=== PATIENT | male | born 1950 | race Caucasian/White ===

== ENCOUNTER → 2019-05-11 19:42 | Outpatient (CLI) | payer MEDICARE, OTHER, SELFPAY ==
--- NOTE | 2019-05-11 | DI.MRI.S_ITS ---
PROCEDURE: MR CERVICAL SPINE WO CON INDICATIONS: CERVICAL RADICULOPATHY TECHNIQUE: Noncontrast sagittal T1 spin echo and T2 fast spin echo, sagittal STIR, foraminal oblique sagittal T2 fast spin echo, and axial gradient echo or T2 fast spin echo through the cervical spine. COMPARISON: [facility], MR, CERVICAL SPINE W/O CONTRAST, 01/09/2008, 15:43. [facility], MR, C-SPINE WITHOUT CONTRAST, 12/14/2011, 18:41. FINDINGS: Image quality: Excellent. Alignment and Curvature: There is a trace C4-C5 and C5-C6 retrolisthesis. Bone Marrow: Mild reactive endplate changes noted adjacent to the C4-C5, C5-C6 and C6-C7 discs. Spinal Cord: Visualized spinal cord has normal size and signal. No cerebellar tonsillar herniation. Paraspinous Soft Tissues: No paravertebral masses. Prevertebral soft tissues are normal in thickness. C2-C3: Loss of disc signal. No central stenosis. No neural foraminal narrowing. No neural compression. C3-C4: Loss of disc signal. Mild, diffuse disc bulge. Mild narrowing of the central canal. Mild bilateral facet hypertrophy. Mild bilateral uncovertebral joint hypertrophy. Moderate bilateral neural foraminal narrowing. No neural compression. C4-C5: Loss of disc signal and height. Moderate, diffuse disc bulge. Severe narrowing of the central canal with slight compression of the cervical spinal cord. Moderate bilateral facet hypertrophy. Moderate bilateral uncovertebral joint hypertrophy. Severe bilateral neural foraminal narrowing with compression of the C5 nerve roots. C5-C6: Loss of disc signal and height. Moderate, diffuse disc bulge. Right central disc protrusion. Severe narrowing of the central canal with compression of the cervical spinal cord. Mild bilateral facet hypertrophy. Mild bilateral uncovertebral joint hypertrophy. Severe bilateral neural foraminal narrowing and compression of the C6 nerve roots. C6-C7: Loss of disc signal. No central stenosis. Mild bilateral facet hypertrophy. Mild bilateral neural foraminal narrowing. No neural compression. C7-T1: Normal appearance. IMPRESSION: 1. Multilevel degenerative disc disease. 2. Multilevel facet and uncovertebral arthropathy. 3. Severe C4-C5 and C5-C6 central canal narrowing. Mild C3-C4 central canal narrowing. 4. Severe bilateral C4-C5 and C5-C6 neural foraminal narrowing. Moderate bilateral C3-C4 neural foraminal narrowing. Mild bilateral C6-C7 neural foraminal narrowing. 5. Compression of the cervical spinal cord at level of the C4-C5 and C5-C6 discs secondary to central canal stenosis. 6. Compression of the exiting bilateral C5 nerve roots and the exiting bilateral C6 nerve roots secondary to neural foraminal narrowing. Dictated by: Jyoti Lee MD, PhD on 05/12/2019 at 11:22 Approved by: Jyoti Lee MD, PhD on 05/12/2019 at 11:51
== END ==
PROVIDERS: PCP Family Medicine; Visit Provider Family Medicine
DX: M54.12 Radiculopathy, cervical region (principal)
CPT/HCPCS: 72141

== ENCOUNTER → 2019-05-21 08:59 | Outpatient (CLI) | payer MEDICARE, OTHER, SELFPAY ==
[2019-05-21 10:05] LABS: Hematocrit 47.6 % (41-53); Hemoglobin 16.3 g/dL (13.5-17.5); Mean Corpuscular HGB Conc 34.2 % (30-36); Mean Corpuscular Hemoglobin 30.7 PG (26-34); Mean Corpuscular Volume 89.7 fL (80-100); Platelet Count 253 X10^3/uL (150-400); Red Blood Cell Count 5.31 X10^6/uL (4.5-5.9); Red Cell Distribution Width 13.5 % (11.6-14.8); White Blood Cell Count 11.1 X10^3/uL (4.5-11.0)
[2019-05-21 10:44] LABS: Blood Urea Nitrogen 30 mg/dL (9-20); Calcium 9.4 mg/dL (8.4-10.2); Carbon Dioxide 27 mmol/L (22-32); Chloride 101 mmol/L (98-107); Estimated Glomerular Filt Rate > 60.0 mL/min (>60); Glucose 78 mg/dL (80-110); HEMOLYSIS < 15 (0-50); Potassium 4.7 mmol/L (3.4-5.1); Sodium 137 mmol/L (137-145)
== END ==
PROVIDERS: PCP Family Medicine; Visit Provider Orthopaedic Surgery
DX: Z01.818 Encounter for other preprocedural examination (principal)
CPT/HCPCS: 36415; 80048; 85027; 93005

== ENCOUNTER 2019-06-09 08:47 | Inpatient (IN) | payer MEDICARE, OTHER, SELFPAY ==
[2019-06-04 07:42] VITALS: BMI 31.4
[2019-06-09] VITALS (18 sets, daily range): BP systolic 135–189; BP diastolic 77–101; PULSE 59–89; RESP 9–17; TEMP 35.8–36.7; O2SAT 59–98
--- NOTE | 2019-06-09 | DI.RAD.S_ITS ---
PROCEDURE: XR CERVICAL SPINE 2V OR 3V INDICATIONS: C4-5 C5-6 ACDF TECHNIQUE: 2 view(s) of the cervical spine were acquired. COMPARISON: None. FINDINGS: Discectomy with placement of disc prosthesis in the lower cervical spine at the level of C4-C5 and C5-C6. IMPRESSION: Discectomy at C4-C5 and C5-C6. Dictated by: Jazmine Inman M.D. on 06/09/2019 at 13:36 Approved by: Jazmine Inman M.D. on 06/09/2019 at 13:37
[2019-06-09] MEDS: LACTATED RINGERS 1,000 ML 42 ML IV ×2 (09:20→13:19)
--- NOTE | 2019-06-09 09:40 | PM.PREOP ---
Pre-operative Note Interval Note History & Physical reviewed/Exam performed by Physician: Yes Changes to H&P: No
[2019-06-09] MEDS: CEFAZOLIN 2 GM/100 ML FROZ.PIGGY IV (10:28)
--- NOTE | 2019-06-09 10:54 | SUR.OPER ---
Supine on padded OR bed, head on gel doughnut, towel roll perpendicular to spine at scapula,arms padded and tucked at side, legs uncrossed, safety belt at thigh, tape over blanket over lower legs .
[2019-06-09] MEDS: BUPIVACAINE 0.25% W/ EPI 30 ML VIAL 60 ML INJ (11:01)
[2019-06-09] MEDS: THROMBIN (RECOMBINANT) 5,000 UNIT VIAL 5000 UNIT TOP (11:02)
[2019-06-09] MEDS: SODIUM CHLORIDE 0.9% 1,000 ML, GENTAMICIN 80 MG IRR (11:02)
[2019-06-09] MEDS: ACETAMINOPHEN IV 1,000 MG/100 ML VIAL 400 MG IV (11:21)
--- NOTE | 2019-06-09 12:01 | PM.OP.1 ---
Operative Date/Time/Diagnoses Date of procedure: 06/09/19 Time of procedure: 12:02 Pre-op diagnosis: Cervical stenosis with myelopathy Post-op diagnosis: same Procedure & Clinicians Procedure: C45 anterior discectomy and artificial disc replacement C5-6 anterior diskectomy an artificial disc replacement Use of microscope Same procedure as scheduled: Yes Indications: [age] year old male with intractable pain from cervical myelopathy. They had failed conservative management and requested operative intervention. Risks and benefits of surgery were discussed and appropriate consents were obtained. Surgeon: Ender Turcios Alligator Trapper: Anastasiia Strauss Anesthesia Type: General Operative Notes Findings: None Closure Type: primary Specimen(s): none sent Prosthetic devices, grafts, tissues, transplants, or devices: Trish Mobi-C ADR Estimated Blood Loss (mL): 5 Blood products transfused: none Procedure in detail: Patient was brought to the operating room and intubated on the table. A time-out was performed. Preoperative antibiotics were given. The neck was prepped and draped in the standard sterile fashion. Using a skin fold, we made a 3 cm oblique incision on the left side. We used Bovie to go through the platysma and then did a standard anterolateral blunt dissection down to the precervical fascia. Fascia was nicked and elevated up. A marker was placed and x-ray was taken for localization. We then subperiosteally elevated up the longus colli muscles. Self-retaining retractors were placed. [place] pins were placed under x-ray guidance to be parallel to the endplates. We then brought in the microscope. A scalpel used to perform an annulotomy. We then used a combination of pituitaries and curettes and Kerrison to perform a complete anterior diskectomy at C4-5. We took down the PLL and used Kerrison to remove any posterior disc material and osteophytes. At the end we could from the nerve hook cephalad caudally and out the foramen and everything was opened. We distracted open with the parallel sugar controller. We then used the horseshoes for sizing. We then used the trials. We then inserted a 15 x 15 x 5 mm size Mobi-C artificial disc replacement under fluoroscopic guidance for positioning. The traction was released and x-ray was checked again. We then moved our retractors down to the C5-6 level. Again a complete diskectomy was performed with scalpel, pituitary, curettes, and Kerrisons. We took down the PLL. Posterior osteophytes and disc material were removed and the neural foramen were cleared out. We could run a nerve hook throughout and everything was opened afterwards. We then trialed for disc replacement. We then inserted a 17 x 15 x 5 mm size Mobi-C ADR under fluoroscopic guidance for positioning. The traction was released and x-rays were checked again. The self retraining retractors and [place] pins were removed. Final x-rays were taken. The wound was irrigated. There was no bleeding. The carotid was beating nicely. The platysma was closed. The superficial was closed. The skin was closed. A sterile dressing was placed. They were then extubated and brought to recovery room with no complications. Complications: none Post-operative Condition: stable Disposition: PACU Plan for aftercare: Inpatient overnight admission.
[2019-06-09] MEDS: HYDROMORPHONE 2 MG INJ 0.5 MG IV ×4 (12:23→13:05)
[2019-06-09] MEDS: hydrOXYzine 50 MG/ML INJ 25 MG IM (12:44)
--- NOTE | 2019-06-09 12:58 | SUR.PHASEI ---
Report given to Elaine Pedersen.
[2019-06-09] MEDS: LACTATED RINGERS 1,000 ML 125 ML IV (14:26)
--- NOTE | 2019-06-09 14:30 | PT.IIE ---
Current Diagnoses Unspecified cord compression (06/09/19) Spinal stenosis, cervical region (06/09/19) Strain of muscle, fascia and tendon at neck level, subsequent encounter (06/09/19) Surgery Performed Operation Date: 06/09/19 10:15 Actual Procedures p C45 & C56 anterior discectomy & artificial disc replacement - Ender Turcios MD Surgical History (Last Updated 06/04/19 @ 08:05 by Laine Carbajal RN) H/O vasectomy (Acute) History of colonoscopy (Acute) History of fusion of lumbar spine (Acute 04/12/17) Hx of tonsillectomy (Acute) S/P left unicompartmental knee replacement (Acute) Medical History (Last Updated 06/08/19 @ 12:02 by Laine Carbajal RN) Bone spur (Acute) Cervical spinal stenosis (Acute) HLD (hyperlipidemia) (Acute) HTN (hypertension) (Acute) Hx of tooth extraction (Acute ~05/2019) Migraines (Acute) Osteoarthritis (Acute) Skin cancer (Acute) Ventral hernia (Acute) Physical Therapy Inpatient Evaluation/Re-Eval M1 PT/OT-IP Prior Functional Status Start: 06/09/19 15:14 Freq: NEEDED Status: Active Protocol: Document 06/09/19 14:30 AB (Rec: 06/09/19 15:24 AB [id number]) Medical Review Prior Functional Status Medical History Reviewed Yes Communication able to make needs known Mobility and Gait pt stated that he is independent with all mobilities and ambulation without AD Social History Household Members spouse Living Arrangements House Number of Floors (Floors) One Floor Number of Stairs To Enter/Railing? 5 steps to enter with bilateral wide rails and can only hold on to one rail at a thime Home Environment High Toilet,Walk in Shower, Built-In Shower Seat Home Equipment Hand Held Shower,Grab Bars In Shower Additional Social History Comment pt has an adjustable bed and has a recilner chair. M2 PT-IP Current Condition Start: 06/09/19 15:14 Freq: NEEDED Status: Active Protocol: Document 06/09/19 14:30 AB (Rec: 06/09/19 15:24 AB [id number]) Physical Therapy Current Condition Current Condition Evaluation Date 06/09/19 Treatment Diagnosis s/p C4-5, C5-6 ACDF; difficulty in walking Onset Date 06/09/19 Precautions Cervical Spine Precautions Soft Collar for Comfort,No Heavy Lifting,Log Roll M3 PT-IP Subjective Start: 06/09/19 15:14 Freq: NEEDED Status: Active Protocol: Document 06/09/19 14:30 AB (Rec: 06/09/19 15:24 AB [id number]) Subjective Physical Therapy Visit Type Type Initial Evaluation Visit Start Time 14:30 Visit Stop Time 15:10 Total Visit Minutes 40 Number of SPORTS ACTIVITIES F[employer]GE Visits 0 Physical Therapy Visit Comments Patient Comments pt agreeable to do PT Patient Goals to go home Therapy Pain Assessment Pain When Pain Assessed At Rest Pain Present Pain Present Pain Reported Location Neck Intensity 2 Scale Used Numeric (1 - 10) Pain Management Techniques Re-positioning,Timing of Activity with Medications M4 PT-IP Mobility and Gait Start: 06/09/19 15:14 Freq: NEEDED Status: Active Protocol: Document 06/09/19 14:30 AB (Rec: 06/09/19 15:24 AB [id number]) PT-Bed Mobility Assessment Rolling Type of Rolling Log Rolling Level of Assist Standby Assistance Supine to Sit Supine to Sit Standby Assistance Sit to Supine Sit to Supine Standby Assistance Scooting Scooting to Edge of Bed Standby Assistance PT-Transfer Assessment Sit to and From Stand Sit to and from Stand Standby Assistance Equipment Transfer Assistive Device Gait Belt Orthotic/Prosthetic Devices or Brace: Yes Comments Mobility Comments pt completed supine to sit log roll SBA with HOB slightly elevated. pt has an adjustable bed at home. pt completed sit to stand CGA and ambulated in room initially requiring CGA and presents with waddling, guarded gait but after a few feet of ambulation was able to ambulate with SBA. instructed pt to stand by the sink in front of the mirror and educated on soft collar management. spouse also educated and assisted pt. pt agreed to ambulate more. pt went back to bed after ambulation and stair training. completed sit to supine SBA and cues. call light and table placed within reach. Gait Assessment Gait Gait Assistance Required: Standby Assistance,Contact Guard Assist Distance (Feet) 300 Able to Maintain Weight Bearing Status Yes During Gait Assistive Devices Assistive Device Gait Belt Orthotic/Prosthetic Devices or Brace: Yes Factors Limiting Gait Function Factors Limiting Gait Function Limited Range of Motion,Pain, Poor Balance Comments Gait Comments pt ambulated towards the stairs without AD SBA and occasional cues for posture as pt tends to have flexed trunk /shoulders. pt completed stairs and ambulated back to room SBA. Stair Climbing Assessment Evaluation Level of Assist On Stairs Standby Assistance,Contact Guard Assistance,1 Person Assistance Devices Stair Climbing Assistive Devices Left Railing,Right Railing Technique/Endurance Stair Climbing Direction Ascend and Descend Stair Climbing Technique Step Over Step,Step to Step Number of Steps Climbed 3 Query Text: Stair Climbing Set # Repetitions (reps) 2 Comments Stair Climbing Comments completed up/down steps using 1 rail SBA to CGA. completed step over step with first set and then step to step on 2nd set for safety. PT-Balance Assessment Sitting Balance and Reactions Static Sitting Balance Ability Normal Dynamic Sitting Balance Ability Normal Standing Balance and Reactions Static Standing Balance Ability Good Dynamic Standing Balance Ability Fair Device Used without AD M5 PT-IP Objective Assessments Start: 06/09/19 15:14 Freq: NEEDED Status: Active Protocol: Document 06/09/19 14:30 AB (Rec: 06/09/19 15:24 AB [id number]) Orientation Orientation/Cognition Level of Alertness Alert Orientation Name,Age,Birthday,Month,Date, Year,Day of Week,Place, Situation Language Function Ability No Deficits Noted Safety Awareness Understands Safety Issues Memory Description No Deficits Noted Gross Range of Motion Lower Extremity ROM Assessment Within Functional Limits Strength Lower Extremity Strength Assessment Within Functional Limits Coordination Assessment Gross Coordination Gross Coordination WNL Sensation Assessment Sensation Gross Sensation WNL Muscle Tone Muscle Tone WNL Yes M6 PT-IP Treatment Start: 06/09/19 15:14 Freq: NEEDED Status: Active Protocol: Document 06/09/19 14:30 AB (Rec: 06/09/19 15:24 AB [id number]) Physical Therapy Treatment Education Education Provided Precautions,Weight Bearing Status,Post-Op Packet,Safety M7 PT-IP Assessment and Plan Start: 06/09/19 15:14 Freq: NEEDED Status: Active Protocol: Document 06/09/19 14:30 AB (Rec: 06/09/19 15:24 AB [id number]) PT Summary Assessment and Plan Potential Rehabilitation Potential Good Status of Condition at Evaluation Stable Summary Impairments Pain,ROM,Strength,Balance,Bed Mobility,Transfers,Gait, Activity Tolerance Assessment Summary pt is doing well with mobility requiring SBA to CGA. pt will have his spouse to assist him at home. pt may go home when medically stable. Goals Bed Mobility Goal Independent Transfer Goal Independent Gait Goal Independent Gait Distance 350 Other Goals up/down 5 steps 1 rail mod I Days to Meet Goals 3 Frequency of Treatment Frequency Of Treatment Twice a Day Treatment Plan Physical Therapy Treatment Plan Bed Mobility Training,Transfer Training,Gait Training, Therapeutic Exercise,Balance Retraining,Post Op Education, Discharge Planning,Hot or Cold Pack,Neuromuscular Re-ed, Coordination Retraining,Manual Therapy Recommendations To Nursing Amount of Assist Needed 1 Person Assist Discharge Recommendations PT Discharge Recommendations Home with Assistance
--- NOTE | 2019-06-09 14:51 | PM.PNPO.1 ---
Subjective Subjective Date Patient Seen: 06/09/19 Time Patient Seen: 14:51 Interval history: Pain level is 2/10. No difficulty swallowing. Arms feel fine. Exam Vital Signs (past 8 hours): - 06/09/19 09:10 06/09/19 12:14 06/09/19 12:19 Temperature 98.0 F 97.9 F Pulse Rate 59 L 89 82 Respiratory Rate 16 15 14 Blood Pressure 149/86 H 149/87 H 137/90 Pulse Oximetry 59 L 95 97 06/09/19 12:24 06/09/19 12:29 06/09/19 12:34 Temperature Pulse Rate 76 73 70 Respiratory Rate 16 16 9 L Blood Pressure 135/92 H 154/92 H 166/101 H Pulse Oximetry 95 96 97 06/09/19 12:39 06/09/19 12:44 06/09/19 12:50 Temperature 96.5 F L Pulse Rate 69 66 67 Respiratory Rate 9 L 10 L 13 Blood Pressure 165/77 H 155/79 H 189/99 H Pulse Oximetry 96 97 96 06/09/19 13:00 06/09/19 13:10 06/09/19 13:20 Temperature Pulse Rate 63 63 67 Respiratory Rate 14 14 13 Blood Pressure 172/99 H 178/93 H 176/96 H Pulse Oximetry 97 97 96 06/09/19 13:30 06/09/19 13:48 06/09/19 13:58 Temperature 97 F L 97.9 F 97.9 F Pulse Rate 64 69 69 Respiratory Rate 14 16 16 Blood Pressure 165/88 H 156/89 H 156/89 H Pulse Oximetry 96 94 94 06/09/19 14:20 Temperature 98.0 F Pulse Rate 70 Respiratory Rate 15 Blood Pressure 158/88 H Pulse Oximetry 98 Oxygen Delivery Method Room Air Oxygen Flow Rate 2 Const Orientation: alert and oriented x3 Back/Spine/Pelvis Other: Minimal dry drainage. 5/5 motor both upper extremities. Assessment & Plan Post-op Postoperative Procedures: Procedures Operation Date: 06/09/19 10:15 Actual Procedures Side Surgeon p C45 & C56 anterior discectomy & artificial disc replacement Ender Turcios MD he is doing very well postoperatively. Mobilizing with physical therapy without any difficulty. He is requesting discharge home.
--- NOTE | 2019-06-09 17:06 | PC.NURSE ---
discharge note- Patient d/c'ed home as ordered. Reviewed DISCHARGE IN STREUCTIONS AND EDUCATION WITH PATIENT AND SIGNED. IV line remmoved and bandaid applied. Patient voided without issue. Patient left with all Handle belonigngs via wheelchair to private car at 1650
== END 2019-06-09 16:50 | disposition home or self-care (01) | DRG 518 ==
PROVIDERS: Admitting Provider Orthopaedic Surgery; PCP Family Medicine; Visit Provider Orthopaedic Surgery
PROC: 0RR30JZ Replacement of Cervical Vertebral Disc with Synthetic Substitute, Open Approach (ICD-10-PCS; principal; 2019-06-09 10:15)
DX: M48.02 Spinal stenosis, cervical region (principal); G95.20 Unspecified cord compression; S16.1XXD Strain of muscle, fascia and tendon at neck level, subsequent encounter; X50.0XXD Overexertion from strenuous movement or load, subsequent encounter; I10 Essential (primary) hypertension
CPT/HCPCS: 72040; 76000; 97161; 97530; C1776; J0131; J0690; J1100; J1170; J2250; J2405; J2704; J3010; J3410

== ENCOUNTER → 2022-12-07 11:54 | Outpatient (CLI) | payer MEDICARE, OTHER, SELFPAY ==
--- NOTE | 2022-12-07 | DI.MRI.S_ITS ---
PROCEDURE: MR LUMBAR SPINE WO CON INDICATIONS: Spondylosis without myelopathy or radiculopathy, lumbar leonardo TECHNIQUE: Noncontrast sagittal T1 spin echo and T2 fast echo, sagittal STIR, and T2 fast spin echo through the lumbar spine. In cases with scoliosis, additional coronal T2 fast spin echo may be performed. COMPARISON: [facility], MR, MR LUMBAR SPINE WITHOUT CONTRAST, 08/24/2016, 11:00. [facility], CR, XR LUMBAR SPINE WITH FLEXION EXTENSION 5 VIEWS, 11/30/2022, 11:59. FINDINGS: Image quality: Excellent. Transitional anatomy is again seen. For the purposes of this report, the 1st non rib-bearing vertebral body is designated as L1 and the lumbosacral transitional element is designated as S1 with a rudimentary disc space at the S1-2 level. This numbering system is in keeping with prior exams dated 08/24/2016 and 11/30/2022. Alignment and Curvature: Mild levoconvex curvature of the lower lumbar spine. 2 mm grade 1 anterolisthesis of L5 on S1. Bone Marrow: Postsurgical changes are seen at the L5-S1 level from prior right hemilaminotomy with disc spacer and right-sided pedicle screws and interbody dhruv. Marrow is of normal overall signal. No acute vertebral body compression fractures. Modic type 2 degenerative endplate changes are noted. Spinal Cord: Conus medullaris terminates at the L1 level. Visualized cord demonstrates normal signal and size. Paraspinous Soft Tissues: No paravertebral masses. Grade 2-3 fatty infiltration of the paraspinous musculature is noted. Postsurgical scarring is seen in the posterior subcutaneous tissues. [id number] cysts are seen in the right kidney. T12-L1: Disc desiccation and loss of disc space height with circumferential disc bulging and superimposed central disc protrusion or extrusion that is partially imaged on axial sequence, which result in mild narrowing of the spinal canal without significant neural foraminal narrowing, not significantly changed when compared to the prior MRI from 2015. L1-L2: Disc desiccation and loss of disc space height with circumferential disc bulging, which result in mild narrowing of the spinal canal without significant neural foraminal narrowing. L2-L3: Disc desiccation and loss of disc space height with circumferential disc bulging as well as bilateral facet hypertrophy and buckling of the ligamentum flavum, which result in moderate to severe narrowing of the spinal canal as well as moderate right and mild left neural foraminal narrowing. Findings have mildly progressed when compared to the MRI from 08/24/2016. L3-L4: Disc desiccation and loss of disc space height with circumferential disc bulging/disc-osteophyte complex as well as moderate bilateral facet hypertrophy and buckling of the ligamentum flavum, which result in moderate narrowing of the spinal canal as well as moderate right and mild left neural foraminal narrowing. L4-L5: Disc desiccation and loss of disc space height with circumferential disc bulging and bilateral facet hypertrophy, which result in moderate right and [id number] left neural foraminal narrowing and moderate narrowing of the central spinal canal. L5-S1: Postsurgical changes from right hemilaminotomy and posterior fixation. The spinal canal is decompressed. Moderate to severe degenerative changes are seen at the left facet joint. Findings result in [id number] bilateral neural foraminal narrowing. S1-2: Mild bilateral facet hypertrophy without significant spinal canal stenosis or neural foraminal narrowing. IMPRESSION: 1. 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 For the purposes of this report, the lumbosacral transitional element is designated as S1, in keeping with the numbering system used on prior exams. 2. Postsurgical changes at the L5-S1 level with decompression of the spinal canal. 3. At L2-3, degenerative changes result in moderate to severe narrowing of the spinal canal as well as moderate right and mild left neural foraminal narrowing. 4. Mild progression of additional multilevel degenerative disc disease and facet hypertrophy as described in detail in the body of the report. Approved by: Som Casanova M.D. on 12/07/2022 at 14:15
== END ==
PROVIDERS: PCP Family Medicine; Referring Provider Physician Assistant Surgical; Visit Provider Physician Assistant Surgical
DX: M47.816 Spondylosis without myelopathy or radiculopathy, lumbar region (principal); M48.061 Spinal stenosis, lumbar region without neurogenic claudication; M51.36 Other intervertebral disc degeneration, lumbar region
CPT/HCPCS: 72148

== ENCOUNTER → 2023-02-25 19:44 | Outpatient (CLI) | payer MEDICARE, OTHER, SELFPAY ==
--- NOTE | 2023-02-25 19:45 | DI.MRI.S_ITS ---
PROCEDURE: MR HIP LT WO CON INDICATIONS: left hip pain TECHNIQUE: Noncontrast coronal T1 spin echo and STIR through the bony pelvis. Coronal and axial T2 fast spin echo with fat saturation, sagittal T1 spin echo, and oblique axial T2 fast spin echo with fat saturation through the hip. COMPARISON: [facility], CR, XR PELVIS WITH LATERAL HIP RIGHT, 01/10/2023, 11:08. FINDINGS: Image quality: Excellent. Bones and joints: Moderate to severe bilateral hip joint osteoarthritic changes are seen with near complete loss of joint space, extensive subchondral sclerosis and marginal osteophyte formation. Significant marrow edema involving bilateral weight-bearing portion of femoral heads and adjacent bilateral acetabular roof. No definite MR evidence of avascular necrosis of femoral head. No discrete fracture line is identified. Prominence of superior anterior left femoral head neck junction is seen which can be seen associated with CAM type femoral acetabular impingement. Tendons and ligaments: The gluteus medius and minimus tendinosis at their insertion on greater trochanter is seen, without associated muscle atrophy. The nearby proximal iliotibial band also appears intact. The iliopsoas tendon appears intact, without adjacent bursal fluid collections or evidence for impingement syndrome. The origin of the hamstring tendon is intact at the ischial tuberosity, as well as the associated sacrotuberous ligament. The straight and reflected heads of the rectus femoris muscle origin appear intact, as well as the conjoint tendon. The ligamentum teres appears intact where visualized. Labrum and cartilage: Diffuse loss of articulating cartilages of femoral head is seen. Signal abnormality throughout left hip labrum is noted suggestive of extensive left hip labral tear. The alpha angle of the femur is within normal limits at less than 55 degrees. Soft tissues: Visualized muscles demonstrate normal bulk and internal signal. Quadratus femoris muscle demonstrates no internal edema to suggest ischiofemoral impingement. The proximal sciatic neurovascular bundle appears normal adjacent to the hamstring tendons. No free pelvic fluid. Bladder wall thickness is normal. Genitourinary structures and bowel loops appear normal where visualized. IMPRESSION: 1. Moderate to severe bilateral hip joint osteoarthritis. No definite fracture or dislocation. Edema in bilateral hip joints likely represent contusion. No definite avascular necrosis of femoral head. 2. Prominence of left superior anterior femoral head neck junction which can be seen associated with CAM type femoral acetabular impingement. 3. Suggestion of extensive left hip labral tear. 4. Distal left gluteus medius and minimus tendinosis. No other muscle or tendon signal abnormalities. Dictated by: Ramesh Everett M.D. on 02/26/2023 at 9:16 Approved by: Ramesh Everett M.D. on 02/26/2023 at 9:20
== END ==
PROVIDERS: Referring Provider Orthopaedic Surgery; Visit Provider Orthopaedic Surgery
DX: M25.552 Pain in left hip (principal); M16.0 Bilateral primary osteoarthritis of hip; M25.452 Effusion, left hip; M25.451 Effusion, right hip
CPT/HCPCS: 73721

== ENCOUNTER 2023-07-06 07:53 | Emergency (ER) | payer MEDICARE, OTHER, SELFPAY ==
[2023-07-06] VITALS (16 sets, daily range): BP systolic 98–134; BP diastolic 65–79; PULSE 56–94; RESP 12–27; TEMP 36.6; O2SAT 98–100; BMI 28.7
--- NOTE | 2023-07-06 08:02 | DI.RAD.S_ITS ---
PROCEDURE: XR CHEST 1V INDICATIONS: chest pain TECHNIQUE: One view of the chest was acquired. COMPARISON: None. FINDINGS: Surgical changes and devices: None. Lungs and pleura: Lungs are clear. No pleural effusions or pneumothorax. Mediastinum: Mediastinal contours appear normal. Heart size is mildly enlarged. Bones and chest wall: No suspicious bony lesions. Overlying soft tissues appear unremarkable. IMPRESSION: Portable chest within normal limits for age. Dictated by: Vanessa Ceja M.D. on 07/06/2023 at 8:48 Approved by: Vanessa Ceja M.D. on 07/06/2023 at 8:48
--- NOTE | 2023-07-06 08:12 | ED_ITS ---
HPI - Arrhythmia/Palpitations General Chief Complaint: Arrhythmia/Palpitations Stated Complaint: Afib, sob, almost passed out Time Seen by Provider: 07/06/23 08:01 Source: patient and family Mode of arrival: Family Vehicle History of Present Illness HPI narrative: Patient is 73-year-old male history of atrial fibrillation on Xarelto, hyperlipidemia presenting today with AFib. He reports that last night at midnight he reports feeling it his heartbeat be very irregular. He reports concentrating on taking deep breaths. He denies any dizziness no real chest pain. Heart rate is controlled less than 100 but does have obvious AFib on monitor and EKG. He denies any fever chills nausea vomiting or abdominal pain. He was cardioverted about a year ago in [place]. He is not missed any doses of his Xarelto. Related Data Home Medications Medication Instructions Recorded Confirmed simvastatin 20 mg tablet 20 mg PO HS ##0 03/27/17 07/03/23 lisinopril 10 mg tablet 10 mg PO DAILY 06/04/19 07/03/23 metoprolol succinate 25 mg 25 mg PO DAILY 07/03/23 07/03/23 tablet,extended release 24 hr rivaroxaban 20 mg tablet (Xarelto) 20 mg PO QPM 07/03/23 07/03/23 Previous Rx's Medication Instructions Recorded tamsulosin 0.4 mg capsule 0.4 mg PO BEDTIME #90 caps 07/03/23 Allergies Allergy/AdvReac Type Severity Reaction Status Date / Time prednisolone AdvReac Intermediate Rash Verified 07/06/23 08:09 Review of Systems Review of Systems ROS Unobtainable: All systems reviewed & are unremarkable except as noted in HPI and below Patient History Medical History 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 Elevated PSA Cervical spinal stenosis Skin cancer Bone spur Ventral hernia Migraines HLD (hyperlipidemia) Osteoarthritis HTN (hypertension) Surgical History Hx of tooth extraction (~05/2019) History of fusion of lumbar spine (04/12/17) History of colonoscopy H/O vasectomy S/P left unicompartmental knee replacement Hx of tonsillectomy Social History household members: spouse Smoking Status: Never smoker Smoking Status: Never smoker alcohol intake frequency: 0-2 drinks per day Substance Use Type: does not use Exam Initial Vital Signs Initial Vital Signs: Vital Signs Pulse Rate 94 H 07/06/23 08:00 Respiratory Rate 19 07/06/23 08:00 Blood Pressure 124/79 07/06/23 08:00 Pulse Oximetry 100 07/06/23 08:00 GENERAL: Alert very pleasant 73-year-old male HEENT: Head atraumatic,EOMI, pupils reactive, face symmetric, [moist] mucous membranes CARDIOVASCULAR: Irregularly irregular. RESPIRATORY: Breath sounds equal bilaterally, no wheezes rales or rhonchi. ABDOMEN: Soft, nontender. Normoactive bowel sounds all 4 quadrants. No guarding or rebound. EXTREMITIES: Normal range of motion, no clubbing or edema. Neurovascularly intact NEUROLOGICAL: Alert and oriented x4.Normal gait and speech. Cranial nerves II through XII grossly intact. SKIN: Warm, dry, no laceration, no petechiae, no rashes or lesions. Procedures Cardioversion Consent Signed: Yes Stability: Stable Joules used: 120 Cardiac rhythm post-cardioversion: NSR Procedural Sedation Consent signed: Yes Indication: cardioversion ASA Class: II Mallampati Airway Classification: Class II IV Propofol dose (mg): 50 Intraservice time/total sedation time (min): 12 ED Sedation Level: Moderate (Concious) Patient Tolerated Procedure: Well and No complications Complications: hypoventilation Interventions: Airway repositioned Course Orders Ordered: ED Orders 07/06/23 08:02 XR chest 1V Stat EKG-12 Lead Stat 07/06/23 08:17 Complete Blood Count AUTO DIFF Stat Comprehensive Metabolic Panel Stat Lipase Stat Magnesium Stat PTT Partial Thromboplastin Jaylon Stat Prothrombin Time INR Stat Troponin & CK Cardiac Panel Stat Discontinued Medications Aspirin (Aspirin 81 Mg Chew Tab) 324 mg PO NOW ONE Stop: 07/06/23 08:03 Last Admin: 07/06/23 10:04 Dose: Not Given Documented By: MIRTHA Propofol (Propofol 200 Mg/20 Ml Vial) 90 mg 1 mg/kg (90 mg) IV NOW ONE Stop: 07/06/23 08:38 Last Admin: 07/06/23 09:56 Dose: 50 mg Documented By: MIRTHA Vital Signs Vital signs: Vital Signs - 8 hr 07/06/23 08:00 07/06/23 08:00 07/06/23 08:02 Temperature 97.8 F Pulse Rate 94 H 88 Respiratory Rate 19 18 Blood Pressure 124/79 124/79 Pulse Oximetry 100 99 Oxygen Delivery Method Room Air 07/06/23 08:17 07/06/23 08:17 07/06/23 08:30 Temperature Pulse Rate 92 H Respiratory Rate 27 H Blood Pressure 112/72 98/71 Pulse Oximetry 100 Oxygen Delivery Method 07/06/23 08:30 07/06/23 09:00 07/06/23 09:00 Temperature Pulse Rate 88 82 Respiratory Rate 23 12 Blood Pressure 108/72 Pulse Oximetry 99 98 Oxygen Delivery Method 07/06/23 09:30 07/06/23 09:30 07/06/23 09:52 Temperature Pulse Rate 86 57 L Respiratory Rate 16 16 Blood Pressure 105/68 Pulse Oximetry 99 Oxygen Delivery Method 07/06/23 09:58 07/06/23 09:58 07/06/23 10:00 Temperature Pulse Rate 60 60 Respiratory Rate 19 19 Blood Pressure 134/72 Pulse Oximetry 99 98 Oxygen Delivery Method 07/06/23 10:03 07/06/23 10:03 07/06/23 10:05 Temperature Pulse Rate 59 L Respiratory Rate 20 Blood Pressure 116/70 117/71 Pulse Oximetry 99 Oxygen Delivery Method 07/06/23 10:05 07/06/23 10:10 07/06/23 10:10 Temperature Pulse Rate 58 L 56 L Respiratory Rate 14 15 Blood Pressure 116/74 Pulse Oximetry 99 99 Oxygen Delivery Method 07/06/23 10:15 07/06/23 10:15 07/06/23 10:20 Temperature Pulse Rate 56 L Respiratory Rate 17 Blood Pressure 112/69 117/74 Pulse Oximetry 99 Oxygen Delivery Method Room Air 07/06/23 10:20 07/06/23 10:25 07/06/23 10:25 Temperature Pulse Rate 58 L 62 Respiratory Rate 19 20 Blood Pressure 104/65 Pulse Oximetry 99 100 Oxygen Delivery Method 07/06/23 10:30 07/06/23 10:30 Temperature Pulse Rate 58 L Respiratory Rate 23 Blood Pressure 107/68 Pulse Oximetry 100 Oxygen Delivery Method MDM - Arrhythmia/Palpitations Lab Data 07/06/23 08:17 07/06/23 08:17 Labs: Lab Results 07/06/23 Range/Units 08:17 WBC 7.4 (4.5-11.0) X10^3/uL RBC 4.68 (4.5-5.9) X10^6/uL Hgb 13.9 (13.5-17.5) g/dL Hct 41.6 (41-53) % MCV 88.9 (80-100) fL MCH 29.7 (26-34) PG MCHC 33.4 (30-36) % RDW 13.3 (11.6-14.8) % Plt Count 270 (150-400) X10^3/uL Neut % (Auto) 70.4 (50-75) % Lymph % (Auto) 19.4 L (25-40) % [place] % (Auto) 6.0 (3-14) % Eos % (Auto) 3.2 (2-4) % Baso % (Auto) 1.0 (0-2) % Neut # (Auto) 5200 (4953-9261) /uL Lymph # (Auto) 1400 (0744-6664) /uL [place] # (Auto) 400 (0-900) /uL Eos # (Auto) 200 (0-450) /uL Baso # (Auto) 100 (0-100) /uL PT 16.5 H (10.1-12.7) SECONDS INR 1.4 H (0.9-1.3) APTT 38 H (26-36) SECONDS Sodium 139 (137-145) mmol/L Potassium 4.5 (3.4-5.1) mmol/L Chloride 106 (98-107) mmol/L Carbon Dioxide 26 (22-32) mmol/L BUN 20 (9-20) mg/dL Creatinine 1.22 (0.66-1.25) mg/dL Estimated GFR > 60 (>60) mL/min BUN/Creatinine Ratio 16.4 (6-22) Glucose 100 (80-110) mg/dL Calcium 9.6 (8.4-10.2) mg/dL Magnesium 2.1 (1.6-2.3) mg/dL Total Bilirubin 0.5 (0.2-1.3) mg/dL AST 29 (17-59) IU/L ALT 22 (<50) IU/L Alkaline Phosphatase 98 (38-126) U/L Total Creatine Kinase 53 L (55-170) U/L Troponin I < 0.012 (0.01-0.034) ng/mL Total Protein 7.2 (6.3-8.2) g/dL Albumin 4.0 (3.5-5.0) g/dL Globulin 3.2 (1.7-4.1) g/dL Albumin/Globulin Ratio 1.3 (1.0-2.8) Lipase 141 (23-300) U/L Imaging Data Chest x-ray: Radiologist's Impresson: PROCEDURE: XR CHEST 1V INDICATIONS: chest pain TECHNIQUE: One view of the chest was acquired. COMPARISON: None. FINDINGS: Surgical changes and devices: None. Lungs and pleura: Lungs are clear. No pleural effusions or pneumothorax. Mediastinum: Mediastinal contours appear normal. Heart size is mildly enlarged. Bones and chest wall: No suspicious bony lesions. Overlying soft tissues appear unremarkable. IMPRESSION: Portable chest within normal limits for age. Dictated by: Vanessa Ceja M.D. on 07/06/2023 at 8:48 ECG Data Interpretation: EKG 1. Atrial fibrillation rate [address] changes EKG 2. Sinus rhythm rate 60 UT interval 190 QRS [address] changes no T- wave inversions MDM Narrative Medical decision making narrative: 73-year-old male history of paroxysmal atrial fibrillation on Xarelto presents within less than 12 hours of atrial fibrillation. He is actually rate controlled but symptomatic. No break in Xarelto no contraindication for cardioversion. Was easily cardioverted back into sinus rhythm. Blood work has been reviewed no clinical significant abnormalities. Chest x-ray does not show any abnormality. Patient tolerated cardioversion procedure sedation well. He is overall feeling better and ready able to go home. Discharge Plan Departure Patient Disposition: Home Clinical Impression: Atrial fibrillation Instructions: DI for Atrial Fibrillation Activity Restrictions/Additional Instructions: *You have been diagnosed with atrial fibrillation *What to do: At this time please continue to take all medications as directed. Please follow-up with your distillation operator call them and let them know that you were cardioverted. *Continue to take medications as directed *Follow up with your primary care provider in 2-3 days or call [phone] *Return to ER if you should have irregular heart rate chest pain palpitations shortness of breath or any new, worsening or concerning symptoms Prescriptions: No Action simvastatin 20 MG tablet 20 mg PO HS Qty: 0 lisinopril 10 mg Tablet 10 mg PO DAILY Xarelto 20 mg tablet 20 mg PO QPM Rx Instructions: must administer with evening meal metoprolol succinate 25 mg tablet extended release 24 hr 25 mg PO DAILY tamsulosin 0.4 mg capsule 0.4 mg PO BEDTIME Qty: 90 3RF Referrals: ProviderBrian [Primary Care Provider] - Stand Alone Forms: Patient Portal/API
[2023-07-06 08:24] LABS: Add Manual Diff / Slide Review NO; Basophils Absolute Auto 100 /uL (0-100); Eosinophils Absolute Auto 200 /uL (0-450); Eosinophils Percent Auto 3.2 % (2-4); Hematocrit 41.6 % (41-53); Hemoglobin 13.9 g/dL (13.5-17.5); Lymphocytes Absolute Auto 1400 /uL (1100-4500); Lymphocytes Percent Auto 19.4 % (25-40); Mean Corpuscular HGB Conc 33.4 % (30-36); Mean Corpuscular Hemoglobin 29.7 PG (26-34); Mean Corpuscular Volume 88.9 fL (80-100); Monocytes Absolute Auto 400 /uL (0-900); Neutrophils Absolute Auto 5200 /uL (1500-7000); Neutrophils Percent Auto 70.4 % (50-75); Platelet Count 270 X10^3/uL (150-400); Red Blood Cell Count 4.68 X10^6/uL (4.5-5.9); Red Cell Distribution Width 13.3 % (11.6-14.8); White Blood Cell Count 7.4 X10^3/uL (4.5-11.0)
[2023-07-06 08:32] LABS: INR 1.4 (0.9-1.3); Prothrombin Time 16.5 SECONDS (10.1-12.7)
[2023-07-06 08:34] LABS: PTT Partial Thromboplastin Tim 38 SECONDS (26-36)
[2023-07-06 08:36] LABS: Alanine Aminotransferase 22 IU/L (<50); Albumin Globulin Ratio 1.3 (1.0-2.8); Alkaline Phosphatase 98 U/L (38-126); Aspartate Aminotransferase 29 IU/L (17-59); BUN Creatinine Ratio 16.4 (6-22); Bilirubin Total 0.5 mg/dL (0.2-1.3); Blood Urea Nitrogen 20 mg/dL (9-20); Calcium 9.6 mg/dL (8.4-10.2); Carbon Dioxide 26 mmol/L (22-32); Chloride 106 mmol/L (98-107); Creatine Kinase 53 U/L (55-170); Estimated Glomerular Filt Rate > 60 mL/min (>60); Globulin 3.2 g/dL (1.7-4.1); Glucose 100 mg/dL (80-110); HEMOLYSIS < 15 (0-50); Lipase 141 U/L (23-300); Magnesium 2.1 mg/dL (1.6-2.3); Potassium 4.5 mmol/L (3.4-5.1); Sodium 139 mmol/L (137-145); Total Protein 7.2 g/dL (6.3-8.2)
[2023-07-06 08:47] LABS: Troponin I < 0.012 ng/mL (0.01-0.034)
[2023-07-06] MEDS: propofoL 200 MG/20 ML VIAL 90 MG IV (09:56)
== END 2023-07-06 10:45 | disposition home or self-care (01) ==
PROVIDERS: Emergency Provider Emergency Medicine
DX: I48.91 Unspecified atrial fibrillation (principal); R07.9 Chest pain, unspecified; Z79.01 Long term (current) use of anticoagulants
CPT/HCPCS: 36415; 71045; 80053; 82550; 83690; 83735; 84484; 85025; 85610; 85730; 92960; 93005; 93010; 99152; 99285; J2704

== ENCOUNTER → 2024-02-05 12:27 | Outpatient (CLI) | payer MEDICARE, OTHER, SELFPAY ==
[2024-02-06 14:36] LABS: PSA Free % 44.3 % (.); PSA, Total 4.6 ng/mL (0.0-4.0)
== END ==
PROVIDERS: Referring Provider Specialist; Visit Provider Specialist
DX: R97.20 Elevated prostate specific antigen [PSA] (principal)
CPT/HCPCS: 36415; 84153; 84154